=== PATIENT | male | born 1985 | race Two or more races ===

== ENCOUNTER 2018-08-18 09:03 | Emergency (ER) | payer MEDICAID ==
[~2018-08-18] VITALS: Ht 170.2 cm; Wt 122.5 kg
[2018-08-18] MEDS ORDERED: LIDOCAINE 1%-EPI 1:100,000 20 ML VIAL ONE (09:23)
[2018-08-18] MEDS ORDERED: TDAP [DIPH/PERTUSSIS/TET] 0.5 ML VIAL IM ONE ×2 (09:24→09:30)
[2018-08-18] MEDS ORDERED: LIDOCAINE 1%-EPI 1:100,000 20 ML VIAL TP ONE (09:30)
--- NOTE | 2018-08-18 10:00 | NUR ---
SUTURING DONE BY DR. GORE
[2018-08-18 10:16] VITALS: BP 140/88
--- NOTE | 2018-08-18 10:16 | NUR ---
Patient discharged to home in stable condition. Written and verbal after care instructions given. Patient verbalizes understanding of instruction.
== END 2018-08-18 10:18 | disposition home or self-care (01) ==
LOC: ER 09:05
DX: S81.812A Laceration without foreign body, left lower leg, initial encounter (principal); I10 Essential (primary) hypertension; F17.200 Nicotine dependence, unspecified, uncomplicated; Z98.890 Other specified postprocedural states; W26.8XXA Contact with other sharp object(s), not elsewhere classified, initial encounter; Y93.89 Activity, other specified; Y92.89 Other specified places as the place of occurrence of the external cause; Y99.8 Other external cause status
CPT/HCPCS: 12032; 90471; 90715; 99284; A6402; J3490